=== PATIENT | male | born 1965 | race Caucasian/White ===

== ENCOUNTER 2017-09-18 21:47 | Emergency (ER) | payer OTHER ==
[2017-09-18] MEDS ORDERED: Adacel Vial IM ONE ×2 (21:51→21:57)
[2017-09-18 22:10] LABS: BASOPHIL % 0.3 % (0.0-0.4); Eosinophil % 2.7 % (0.00-5.0); Granulocytes % 57.3 % (36.0-66.0); Lymphocytes % 32.7 % (24.0-44.0); Mean Cell Volume 83.6 fl (78-100); Mean Corpuscular Hemoglobin 29.4 pg (26-32); Mean Platelet Volume 11.6 fl (6-9.5); Platelet Count 74 K/mm3 (150-450); Red Blood Count 5.06 M/mm3 (4.1-5.6); Red Cell Distribution Width 13.7 % (11.5-14.0)
[2017-09-18 22:34] LABS: ALKALINE PHOSPHATASE 83 U/L (46-116); ANION GAP 16.1 MEQ/L (5-15); BLOOD UREA NITROGEN 12 mg/dL (9-20); CHLORIDE 104 mEq/L (98-107); Carbon Dioxide 21.8 mEq/L (21-32); ETHYL ALCOHOL 0.237 % (0.00-0.01); Glucose 146 MG/DL (70-110); Potassium 3.7 mEq/L (3.5-5.1); SGOT/AST 26 U/L (15-37); SGPT/ALT 24 U/L (12-78); SODIUM 138 mEq/L (136-145); Total Protein 7.6 gm/dL (6.4-8.2)
[2017-09-18 22:40] LABS: INR 1.1 (0.8-3.0); PROTIME 12.2 SECONDS (8.83-12.87)
[2017-09-18] MEDS ORDERED: Marcaine 0.5%/Epinephrine 10 ML IJ ONE (22:40)
--- NOTE | 2017-09-18 22:40 | ERPHSYRPT ---
- History of Present Illness Time Seen by Provider: 09/18/17 21:51 Source: patient Patient Subjective Stated Complaint: pt states he tripped and fell and hit his head on a concrete block. states he has been drinking tonight Triage Nursing Assessment: pt awake and alert. answers questions approp. speech slurred. pt cooperative at this t aisha. pt ambulatory with slightly unsteady gait noted. approx 3.5cm lac noted above rt eye. pupils equal and reactive. bilat upper and lower ext strength equal and wnl. pt denies pain, denies any other injuries. Physician History: CC: head injury Hx: 51 y/o patient from [place] showed up at back door of ER with head injury. He states he has been drinking beer all day. He left his trailer and tripped on a landscape fence. He struck a concrete block. Occurred tonite RENTAL REPRESENTATIVE. 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 No LOC. No neck or back pain. He has a cut above the right eyebrow. No other injuries. Occurred: this evening Severity: mild Loss of Consciousness: no loss of consciousness Allergies/Adverse Reactions: No Known Drug Allergies Allergy (Unverified 09/18/17 22:23) Home Medications: Ibuprofen 200 mg [Motrin 200 mg] 200 mg PO 09/18/17 [History] Hx Tetanus, Diphtheria Vaccination/Date Given: No (unknown) Hx Influenza Vaccination/Date Given: No Hx Pneumococcal Vaccination/Date Given: No Immunizations Up to Date: No - Review of Systems Constitutional: No Symptoms Eyes: No Vision Changes Respiratory: No Dyspnea Cardiac: No Chest Pain, No Syncope Abdominal/Gastrointestinal: No Abdominal Pain, No Nausea, No Vomiting Musculoskeletal: Fall, Injury, No Back Pain, No Neck Pain Neurological: No Focal Weakness, No Headache, No Parasthesia All Other Systems: Reviewed and Negative - Past Medical History Pertinent Past Medical History: No Other Medical History: Back Disabililty - Past Surgical History Past Surgical History: No Other Surgical History: denies hx of surgeries - Social History Smoking Status: Former smoker Exposure to second hand smoke: Yes Alcohol Use: all day Drug Use: none Patient Lives Alone: Yes - Nursing Vital Signs Nursing Vital Signs: Initial Vital Signs Temperature 98.0 F 09/18/17 21:51 Pulse Rate 93 H 09/18/17 21:51 Respiratory Rate 20 09/18/17 21:51 Blood Pressure 144/83 09/18/17 21:51 O2 Sat by Pulse Oximetry 94 L 09/18/17 21:51 Pain Scale Pain Intensity 0 - Raj Coma Score Best Eye Response (Raj): (4) open spontaneously Best Verbal Response ([place]): (5) oriented Best Motor Response ([place]): (6) obeys commands Raj Total: 15 - Physical Exam General Appearance: alert Head Injury: lacerations (deep laceration 3.5cm above right eye. No ocular involvment. No hyphema. EOMI. PERRL.) Eye Exam: bilateral eye: PERRL, EOMI ENT Exam: airway nml Neck Exam: supple, trachea midline, normal inspection, No focal neuro deficit, No mid-line tenderness Cardiovascular/Respiratory Exam: chest non-tender, normal breath sounds, regular rate/rhythm Gastrointestinal/Abdominal Exam: soft, non tender, no distention Extremity Exam: non-tender, normal range of motion Mental Status Exam: alert, oriented x 3 Motor/Sensory Exam: no motor deficit, no sensory deficit Skin Exam: warm, dry SpO2 Interpretation: normal SpO2: 94 Oxygen Delivery: Room Air Procedures - Laceration/Wound Repair right eyebrow Wound Location: Right Wound Length (cm): 3.5 Wound's Depth, Shape: linear, stellate Wound Explored: no foreign body noted Irrigated: Yes Hibiclens Prep: Yes Anesthesia: local, marcaine 0.5 (with epi) Volume Anesthetic (ccs): 5 Wound Repaired With: sutures Suture Size/Type: 4-0, prolene Number of Sutures: 6 Layer Closure?: No - Course Nursing assessment & vital signs reviewed: Yes - CT Exams head CT Interpretation: Tele-radiologist Report, No Fracture, No/Intracranial Hemorrhag cervical CT Interpretation: Tele-radiologist Report, DJD, No Fracture, No Subluxation Ordered Tests: Active Orders 24 hr Category Date Time Status Clean Catch Urine Specimen STAT Care 09/18/17 21:51 Active IV Insertion STAT Care 09/18/17 21:51 Active Prepare for Sutures STAT Care 09/18/17 22:40 Active Sutures STAT Care 09/18/17 22:41 Active Wound Care STAT Care 09/18/17 21:51 Active CERVICAL SPINE WO CONTRAST [CT] Stat Exams 09/18/17 21:52 Taken HEAD WITHOUT CONTRAST [CT] Stat Exams 09/18/17 21:52 Taken CBC W DIFF Stat Lab 09/18/17 22:06 Completed CMP Stat Lab 09/18/17 22:06 Completed ETHYL ALCOHOL Stat Lab 09/18/17 22:06 Completed PROTIME WITH INR Stat Lab 09/18/17 22:06 Completed PTT Stat Lab 09/18/17 22:06 Completed UA W/RFX UR CULTURE Stat Lab 09/18/17 21:52 Ordered Urine Triage Profile Stat Lab 09/18/17 21:52 Ordered Medication Summary Discontinued Medications Generic Name Dose Route Start Last Admin Trade Name Freq PRN Reason Stop Dose Admin Bupivacaine HCl/Epinephrine Bitart 5 ml 09/18/17 22:40 09/18/17 23:14 Marcaine 0.5%/Epinephrine 10 Ml IJ 09/18/17 22:41 5 ml STAT ONE Administration Bupivacaine HCl/Epinephrine Bitart Confirm 09/18/17 22:43 Marcaine 0.5%/Epinephrine 10 Ml Administered 09/18/17 22:44 Dose 10 ml .ROUTE .STK-MED ONE Diphtheria/Tetanus/Acell Pertussis 0.5 ml 09/18/17 21:51 09/18/17 22:42 Adacel Vial IM 09/18/17 21:52 0.5 ml .ONCE ONE Administration Diphtheria/Tetanus/Acell Pertussis Confirm 09/18/17 21:57 Adacel Vial Administered 09/18/17 21:58 Dose 0.5 ml IM .STK-MED ONE Lab/Rad Data: Laboratory Result Diagrams 09/18/17 22:06 09/18/17 22:06 Laboratory Results 09/18/17 09/18/17 09/18/17 Range/Units 22:06 22:06 22:06 WBC 6.0 (4.0-10.5) K/mm3 RBC 5.06 (4.1-5.6) M/mm3 Hgb 14.9 (12.5-18.0) gm/dl Hct 42.3 (42-50) % MCV 83.6 (78-100) fl MCH 29.4 (26-32) pg MCHC 35.2 (32-36) g/dl RDW 13.7 (11.5-14.0) % Plt Count 74 L (150-450) K/mm3 MPV 11.6 H (6-9.5) fl Gran % 57.3 (36.0-66.0) % Lymphocytes % 32.7 (24.0-44.0) % Monocytes % 7.0 (0.0-12.0) % Eosinophils % 2.7 (0.00-5.0) % Basophils % 0.3 (0.0-0.4) % Basophils # 0.02 (0-0.4) INR 1.10 (0.8-3.0) APTT 32.5 (24.1-36.1) SECONDS Sodium 138 (136-145) mEq/L Potassium 3.7 (3.5-5.1) mEq/L Chloride 104 (98-107) mEq/L Carbon Dioxide 21.8 (21-32) mEq/L Anion Gap 16.1 H (5-15) MEQ/L BUN 12 (9-20) mg/dL Creatinine 1.10 (0.55-1.30) mg/dl Estimated GFR > 60 ML/MIN Glucose 146 H (70-110) MG/DL Calcium 8.6 (8.5-10.1) mg/dL Total Bilirubin 0.60 (0.2-1.0) mg/dL AST 26 (15-37) U/L ALT 24 (12-78) U/L Alkaline Phosphatase 83 (46-116) U/L Serum Total Protein 7.6 (6.4-8.2) gm/dL Albumin 4.0 (3.4-5.0) g/dL Ethyl Alcohol 0.237 H* (0.00-0.01) % - Departure Time of Disposition: 23:26 Departure Disposition: Home Clinical Impression: Laceration of right eyebrow, Alcohol intoxication Condition: Stable Critical Care Time: No Referrals: HELLEN VALVERDE MD [Primary Care Provider] - Instructions: Care for a Laceration After Repair, Alcohol Abuse and Alcoholism , Closed Head Injury Additional Instructions: HEAD INJURY 1. A responsible person should observe the patient at home for 24 hours. 2. If any of the following signs or symptoms are observed or occur, call your family physician or return to the emergency department: A. Behavior change B. Persistent vomiting C. Unequal pupils D. Increasing drowsiness E. Difficulty in arousing the patient F. Severe headache G. Lump on head increasing in size LACERATION CARE 1. Do not use peroxide, merthiolate, alcohol, or betadine. 2. Keep wound clean and dry. 3. Change dressing if it becomes wet or soiled. 4. If you must work, wear protective covering. 5. You may return to the emergency department or see your family physician for suture removal. 6. See your family physician or return to the emergency department for any of the following signs or symptoms: A. Redness B. Swelling C. Discolored drainage D. Red streaks E. Elevated temperature F. Other signs of infection Stay with family and no driving tonite. Suture removal in 10 days. Return for problems or concerns.
[2017-09-18 22:43] LABS: PTT 32.5 SECONDS (24.1-36.1)
[2017-09-18] MEDS ORDERED: Marcaine 0.5%/Epinephrine 10 ML ONE (22:43)
[2017-09-18 23:27] LABS: Bilirubin NEGATIVE (NEGATIVE); Blood 250 Ery/ul (0-5); COMPLETE URINE MICROSCOPIC? YES; Collection Type VOID; Glucose NEGATIVE (NEGATIVE); Leukocyte Esterase NEGATIVE (NEGATIVE); WBC 0-2 /HPF (0-5)
[2017-09-18 23:28] LABS: ADD URINE CULTURE? NO (NO); Bacteria FEW /HPF (NEGATIVE); Epithelial Cells RARE /HPF (FEW)
[2017-09-18 23:47] VITALS: BP 138/75; PULSE 84; O2SAT 95
--- NOTE | 2017-09-19 08:11 | XRAY ---
Indication: Head injury following fall. Multiple contiguous axial images obtained through the cervical spine. Sagittal and coronal reformatted images obtained. Comparison: None Axial images negative for acute fracture, suspicious bony lesions, or spinal canal stenosis. Mild C5-C7 degenerative endplate spurring. Also mild L2 level bilateral degenerative facet arthropathy. Sagittal and coronal reformatted images demonstrates normal alignment. Mild C5-C6 disc space narrowing. No acute compression fracture, subluxation, or jumped facet. Normal-appearing craniocervical junction. Visualized noncontrasted soft tissues including lung apices unremarkable. CT head reported separately. Impression 1. Negative acute fracture/subluxation. 2. Multilevel degenerative changes greatest at the C5-C6 level. Comment: Preliminary interpretation was made by [facility]. No critical discrepancy. CTDI 114.41
--- NOTE | 2017-09-19 08:11 | XRAY ---
Indication: Head injury following fall. Multiple contiguous axial images obtained through the head without contrast. Comparison: None Ventriculosulcal pattern appears symmetric. No acute intracranial hemorrhage, abnormal extra-axial fluid collection, or mass effect. Fourth ventricle is midline without hydrocephalus. Patino-white matter differentiation preserved. Bony calvarium intact. Visualized paranasal sinuses and mastoid air cells clear. Bandage material overlies the right orbit. Impression: No acute intracranial abnormalities. Comment: Preliminary interpretation was made by [facility]. No discrepancy. CTDI 47.50
== END 2017-09-18 23:37 | disposition home or self-care (01) ==
LOC: ED 21:47
PROC: 0HQ1XZZ Repair Face Skin, External Approach (ICD-10-PCS; principal; 2017-09-18)
DX: S01.111A Laceration without foreign body of right eyelid and periocular area, initial encounter (principal); F10.129 Alcohol abuse with intoxication, unspecified; W01.198A Fall on same level from slipping, tripping and stumbling with subsequent striking against other object, initial encounter
CPT/HCPCS: 12013; 36000; 36415; 70450; 72125; 80053; 80307; 81000; 85025; 85610; 85730; 90471; 90715; 96372; 99284; G0481